=== PATIENT | male | born 1955 | race Hispanic/Latino ===

== ENCOUNTER 2022-03-17 10:05 | Outpatient (CLI) | payer MEDICARE, BC | END 2022-03-17 10:06 | disposition home or self-care (01) | LOC: CSHCT 10:05 | PROVIDERS: ATTEND Neurological Surgery | DX: M48.062 Spinal stenosis, lumbar region with neurogenic claudication (principal); Z98.890 Other specified postprocedural states; I70.90 Unspecified atherosclerosis | CPT/HCPCS: 72131 ==